=== PATIENT | female | born 1945 | race Caucasian/White ===

== ENCOUNTER 2017-02-25 11:53 | Inpatient (IN) | payer OTHER ==
[~2017-02-25] VITALS: Ht 167.6 cm; Wt 92.5 kg
[~2017-02-25 11:53] MED LIST: ACET-812 PO; ADV50100 INH; ALBU8HFA PO; AMLO10TA PO; ATOR40TA71 PO; CLOP75TA33 PO; ESCI10TA54 PO; GABA600T2 PO; INSU100C10 SQ; INSU300I SQ; NITR0.4T51 SL; RANI150C4 PO
[2017-02-25 12:38] LABS: BASOPHILS % (AUTO) 0.2 % (0-1); EOSINOPHILS # (AUTO) 0.3 X10'3 (0-0.9); EOSINOPHILS % (AUTO) 3.1 % (0-6); HEMATOCRIT 38.6 % (35.0-45.0); HEMOGLOBIN 12.9 g/dl (12.0-16.0); LYMPHOCYTES # (AUTO) 2.5 X10'3 (1.1-4.8); LYMPHOCYTES % (AUTO) 24.7 % (21-51); MEAN CORPUSCULAR HEMOGLOBIN 28.5 PG (27.0-31.0); MEAN CORPUSCULAR HGB CONC 33.4 % (33.0-36.5); MEAN CORPUSCULAR VOLUME 85.1 FL (78-98); MEAN PLATELET VOLUME 8.9 FL (7.4-10.4); MONOCYTES # (AUTO) 0.6 X10'3 (0-0.9); MONOCYTES % (AUTO) 5.5 % (2-12); NEUTROPHILS # (AUTO) 6.8 X10'3 (1.8-7.7); NEUTROPHILS % (AUTO) 66.5 % (42-75); PLATELET COUNT 240 X10'3 (140-440); RED BLOOD COUNT 4.53 X10'6 (4.20-5.60); RED CELL DISTRIBUTION WIDTH 14.8 % (11.5-14.5); WHITE BLOOD COUNT 10.2 X10'3 (4.5-11.0)
[2017-02-25 12:58] LABS: ALANINE AMINOTRANSFERASE 64 U/L (12-78); ALBUMIN 3.8 G/DL (3.4-5.0); ALBUMIN/GLOBULIN RATIO 0.9 (1.1-1.5); ALKALINE PHOSPHATASE 99 IU/L (46-116); ANION GAP 6 (8-16); ASPARTATE AMINO TRANSFERASE 47 U/L (10-37); BILIRUBIN,TOTAL 1.2 MG/DL (0.1-1.0); BLOOD UREA NITROGEN 11 MG/DL (7-18); BUN/CREATININE RATIO 14.7 (6.6-38.0); CALCIUM 8.8 MG/DL (8.5-10.1); CHLORIDE 102 MMOL/L (99-107); CREATININE 0.75 MG/DL (0.40-0.90); GLUCOSE 206 MG/DL (70-104); POTASSIUM 3.6 MMOL/L (3.5-5.1); SODIUM 137 MMOL/L (135-145); TOTAL CARBON DIOXIDE 28.8 MMOL/L (24-32); TOTAL PROTEIN 8.1 G/DL (6.4-8.2); eGFR 76 ML/MIN
[2017-02-25] MEDS ORDERED: normal saline 1000ML IV soln IVB ONE (14:40)
[2017-02-25] MEDS ORDERED: aspirin 81mg tab.chew PO ONE (14:40)
[2017-02-25] MEDS ORDERED: LOSA1TAB41 PO (15:09)
[2017-02-25] MEDS ORDERED: magnesium hydroxide 30ml (MOM) UD suspension PO PRN (18:15)
[2017-02-25] MEDS ORDERED: ondansetron/PF 4mg/2ml inj IV PRN (18:15)
[2017-02-25] MEDS ORDERED: mag hydrox/Alum hydrox/simeth 30ml oral suspension PO PRN (18:15)
[2017-02-25] MEDS ORDERED: acetaminophen 325mg tablet PO PRN ×2 (18:15→18:50)
[2017-02-25] MEDS ORDERED: nitroGLYCERIN 0.4mg SUBLingual tab SL PRN (18:50)
[2017-02-25] MEDS ORDERED: dextrose ORAL solution 15 GM/59 ML bottle PO PRN ×2 (18:55)
[2017-02-25] MEDS ORDERED: MESSAGE TO PHARMACY PO ONE (18:55)
[2017-02-25] MEDS ORDERED: heparin 10,000 units/1 ML INJ IV PRN (18:55)
[2017-02-25] MEDS ORDERED: dextrose 50%-water 50ml dispensing syringe IV PRN ×2 (18:55)
[2017-02-25] MEDS ORDERED: glucagon, human recombinant 1mg kit SUBCUT PRN (18:55)
[2017-02-25] MEDS ORDERED: heparin 10,000 units/1 ML INJ IV ONE (18:55)
[2017-02-25 19:24] LABS: HEMOGLOBIN A1C 8.7 % (4.5-6.2)
[2017-02-25] MEDS: famotidine 20mg tablet PO SCH (19:49)
[2017-02-25] MEDS: gabapentin 300mg capsule PO SCH (19:49)
[2017-02-25] MEDS: metoprolol tartrate 12.5mg (1/2 tablet) PO SCH (19:49)
[2017-02-25] MEDS: normal saline 1000ml 1,000 ML IV SCH (19:50)
[2017-02-25 19:58] LABS: BASOPHILS # (AUTO) 0.1 X10'3 (0-0.2); BASOPHILS % (AUTO) 0.8 % (0-1); EOSINOPHILS # (AUTO) 0.2 X10'3 (0-0.9); EOSINOPHILS % (AUTO) 1.9 % (0-6); HEMATOCRIT 36.5 % (35.0-45.0); HEMOGLOBIN 12.1 g/dl (12.0-16.0); LYMPHOCYTES # (AUTO) 3.6 X10'3 (1.1-4.8); LYMPHOCYTES % (AUTO) 31.9 % (21-51); MEAN CORPUSCULAR HEMOGLOBIN 28.7 PG (27.0-31.0); MEAN CORPUSCULAR HGB CONC 33.3 % (33.0-36.5); MEAN CORPUSCULAR VOLUME 86.3 FL (78-98); MEAN PLATELET VOLUME 8.8 FL (7.4-10.4); MONOCYTES # (AUTO) 0.8 X10'3 (0-0.9); MONOCYTES % (AUTO) 6.7 % (2-12); NEUTROPHILS # (AUTO) 6.6 X10'3 (1.8-7.7); NEUTROPHILS % (AUTO) 58.7 % (42-75); PLATELET COUNT 223 X10'3 (140-440); RED BLOOD COUNT 4.22 X10'6 (4.20-5.60); RED CELL DISTRIBUTION WIDTH 14.8 % (11.5-14.5); WHITE BLOOD COUNT 11.3 X10'3 (4.5-11.0)
[2017-02-25 20:00] VITALS: BP 135/72
[2017-02-25 20:08] LABS: PARTIAL THROMBOPLASTIN TIME 24 SECONDS (22-32); PROTHROMBIN TIME 10.7 SECONDS (9.0-12.0)
[2017-02-25] MEDS: Insulin Detemir pen SQ SCH (21:32)
[2017-02-25] MEDS: atorvastatin 20mg tablet PO SCH (21:32)
[2017-02-25 22:00] VITALS: BP 122/61
[2017-02-26] VITALS (11 sets, daily range): BP systolic 108–143; BP diastolic 59–77
[2017-02-26 02:02] LABS: BASOPHILS % (AUTO) 0.4 % (0-1); EOSINOPHILS # (AUTO) 0.3 X10'3 (0-0.9); EOSINOPHILS % (AUTO) 2.9 % (0-6); HEMATOCRIT 34.5 % (35.0-45.0); HEMOGLOBIN 11.5 g/dl (12.0-16.0); LYMPHOCYTES # (AUTO) 4.7 X10'3 (1.1-4.8); MEAN CORPUSCULAR HEMOGLOBIN 28.7 PG (27.0-31.0); MEAN CORPUSCULAR HGB CONC 33.3 % (33.0-36.5); MEAN CORPUSCULAR VOLUME 86.1 FL (78-98); MEAN PLATELET VOLUME 9.1 FL (7.4-10.4); MONOCYTES # (AUTO) 0.7 X10'3 (0-0.9); MONOCYTES % (AUTO) 5.8 % (2-12); NEUTROPHILS # (AUTO) 5.8 X10'3 (1.8-7.7); NEUTROPHILS % (AUTO) 49.9 % (42-75); PLATELET COUNT 206 X10'3 (140-440); RED CELL DISTRIBUTION WIDTH 14.5 % (11.5-14.5); WHITE BLOOD COUNT 11.6 X10'3 (4.5-11.0)
[2017-02-26 02:16] LABS: ALANINE AMINOTRANSFERASE 51 U/L (12-78); ALBUMIN 3.2 G/DL (3.4-5.0); ALBUMIN/GLOBULIN RATIO 0.8 (1.1-1.5); ALKALINE PHOSPHATASE 80 IU/L (46-116); ANION GAP 7 (8-16); ASPARTATE AMINO TRANSFERASE 34 U/L (10-37); BILIRUBIN,TOTAL 0.9 MG/DL (0.1-1.0); BLOOD UREA NITROGEN 16 MG/DL (7-18); BUN/CREATININE RATIO 20.8 (6.6-38.0); CALCIUM 8.4 MG/DL (8.5-10.1); CHLORIDE 104 MMOL/L (99-107); CREATININE 0.77 MG/DL (0.40-0.90); GLUCOSE 207 MG/DL (70-104); POTASSIUM 3.6 MMOL/L (3.5-5.1); SODIUM 137 MMOL/L (135-145); TOTAL CARBON DIOXIDE 26.4 MMOL/L (24-32); eGFR 74 ML/MIN
[2017-02-26] MEDS: normal saline 1000ml 1,000 ML IV SCH ×2 (06:01→20:44)
[2017-02-26] MEDS ORDERED: regadenoson 0.4mg/5ml syringe IV ONE ×2 (07:40→10:14)
[2017-02-26] MEDS ORDERED: aminophylline 250mg/10ml inj. IV PRN (07:40)
[2017-02-26] MEDS ORDERED: nitroGLYCERIN 0.4mg SUBLingual tab SL PRN (07:40)
[2017-02-26] MEDS ORDERED: metoprolol tartrate 1mg/ml inj IV PRN (07:40)
[2017-02-26] MEDS ORDERED: aminophylline inj. 0 ML IV ONE (10:14)
[2017-02-26] MEDS: losartan 50mg tablet PO SCH (11:32)
[2017-02-26] MEDS: gabapentin 300mg capsule PO SCH ×2 (11:32→21:02)
[2017-02-26] MEDS: metoprolol tartrate 12.5mg (1/2 tablet) PO SCH ×2 (11:32→21:02)
[2017-02-26] MEDS: HYDROchlorothiazide 12.5mg capsule PO SCH (11:32)
[2017-02-26] MEDS: famotidine 20mg tablet PO SCH ×2 (11:33→21:02)
[2017-02-26] MEDS: clopidogrel 75mg tablet PO SCH (11:33)
[2017-02-26] MEDS: citalopram 20mg tablet PO SCH (11:33)
[2017-02-26] MEDS: amLODIPine 5mg tablet PO SCH (11:33)
[2017-02-26] MEDS: insulin Lispro (HumaLOG) vial - multi-dose SQ SCH ×2 (13:14→18:59)
[2017-02-26] MEDS ORDERED: temazepam 15mg capsule PO PRN (17:30)
[2017-02-26] MEDS: nitroGLYCERIN 0.4mg SUBLingual tab SL PRN ×2 (17:37→17:48)
[2017-02-26] MEDS: atorvastatin 20mg tablet PO SCH (21:02)
[2017-02-26] MEDS: Insulin Detemir pen SQ SCH (21:06)
[2017-02-27] VITALS (15 sets, daily range): BP systolic 109–136; BP diastolic 58–76
[2017-02-27] MEDS: normal saline 1000ml 1,000 ML IV SCH ×3 (00:12→16:51)
[2017-02-27 06:53] LABS: BASOPHILS % (AUTO) 0.5 % (0-1); EOSINOPHILS # (AUTO) 0.4 X10'3 (0-0.9); EOSINOPHILS % (AUTO) 4.2 % (0-6); HEMATOCRIT 36.4 % (35.0-45.0); HEMOGLOBIN 12.2 g/dl (12.0-16.0); LYMPHOCYTES # (AUTO) 3.7 X10'3 (1.1-4.8); LYMPHOCYTES % (AUTO) 39.6 % (21-51); MEAN CORPUSCULAR HEMOGLOBIN 28.7 PG (27.0-31.0); MEAN CORPUSCULAR HGB CONC 33.6 % (33.0-36.5); MEAN CORPUSCULAR VOLUME 85.4 FL (78-98); MEAN PLATELET VOLUME 8.8 FL (7.4-10.4); MONOCYTES # (AUTO) 0.7 X10'3 (0-0.9); MONOCYTES % (AUTO) 7.3 % (2-12); NEUTROPHILS # (AUTO) 4.5 X10'3 (1.8-7.7); NEUTROPHILS % (AUTO) 48.4 % (42-75); PLATELET COUNT 196 X10'3 (140-440); RED BLOOD COUNT 4.26 X10'6 (4.20-5.60); RED CELL DISTRIBUTION WIDTH 14.9 % (11.5-14.5); WHITE BLOOD COUNT 9.3 X10'3 (4.5-11.0)
[2017-02-27 07:12] LABS: ALANINE AMINOTRANSFERASE 48 U/L (12-78); ALBUMIN 3.3 G/DL (3.4-5.0); ALBUMIN/GLOBULIN RATIO 0.8 (1.1-1.5); ALKALINE PHOSPHATASE 75 IU/L (46-116); ANION GAP 9 (8-16); ASPARTATE AMINO TRANSFERASE 35 U/L (10-37); BILIRUBIN,TOTAL 1.1 MG/DL (0.1-1.0); BLOOD UREA NITROGEN 11 MG/DL (7-18); BUN/CREATININE RATIO 13.4 (6.6-38.0); CALCIUM 8.6 MG/DL (8.5-10.1); CHLORIDE 107 MMOL/L (99-107); CREATININE 0.82 MG/DL (0.40-0.90); GLUCOSE 173 MG/DL (70-104); POTASSIUM 3.8 MMOL/L (3.5-5.1); SODIUM 143 MMOL/L (135-145); TOTAL CARBON DIOXIDE 27.3 MMOL/L (24-32); TOTAL PROTEIN 7.3 G/DL (6.4-8.2); eGFR 69 ML/MIN
[2017-02-27] MEDS: clopidogrel 75mg tablet PO SCH (08:00)
[2017-02-27] MEDS: insulin Lispro (HumaLOG) vial - multi-dose SQ SCH ×3 (09:34→18:47)
[2017-02-27] MEDS: amLODIPine 5mg tablet PO SCH (09:44)
[2017-02-27] MEDS: losartan 50mg tablet PO SCH (09:44)
[2017-02-27] MEDS: HYDROchlorothiazide 12.5mg capsule PO SCH (09:44)
[2017-02-27] MEDS: metoprolol tartrate 12.5mg (1/2 tablet) PO SCH (09:44)
[2017-02-27] MEDS: citalopram 20mg tablet PO SCH (09:44)
[2017-02-27] MEDS: gabapentin 300mg capsule PO SCH ×2 (09:44→19:43)
[2017-02-27] MEDS: famotidine 20mg tablet PO SCH ×2 (09:45→19:43)
[2017-02-27] MEDS ORDERED: hydrocortisone sod succ/PF 100mg/2ml inj. IV ONE (11:20)
[2017-02-27] MEDS ORDERED: diphenhydrAMINE 25mg capsule PO ONE (11:20)
[2017-02-27] MEDS ORDERED: famotidine/PF 10 mg/ml inj IV ONE (11:20)
[2017-02-27] MEDS ORDERED: nitroGLYCERIN-Tridil 50MG/D5W 250 ML IV ONE (12:20)
[2017-02-27] MEDS ORDERED: LIDOcaine 1%/PF (10mg/ml) 5ml vial ONE (12:21)
[2017-02-27] MEDS ORDERED: heparin 1,000unit/ml 10ml vial 10 ML ONE (12:21)
[2017-02-27] MEDS ORDERED: iohexol 350 MG/ML 50ML vial IV ONE (12:21)
[2017-02-27] MEDS ORDERED: iohexol 350MG/ML 100ml bottle IV ONE (12:21)
[2017-02-27] MEDS ORDERED: fentaNYL/PF 50MCG/1 ML 2ML syringe ONE (12:37)
[2017-02-27] MEDS ORDERED: midazolam 2 mg/2 ml injection ONE (12:37)
[2017-02-27] MEDS: metoprolol tartrate 25mg tablet PO SCH (19:43)
[2017-02-27] MEDS ORDERED: isosorbide mononitrate 30mg tab.SR.24H PO SCH (21:00)
[2017-02-27] MEDS: atorvastatin 20mg tablet PO SCH (21:44)
[2017-02-27] MEDS: Insulin Detemir pen SQ SCH (21:47)
[2017-02-28 03:00] VITALS: BP 102/61
[2017-02-28] MEDS: normal saline 1000ml 1,000 ML IV SCH (04:55)
[2017-02-28 05:14] LABS: BASOPHILS % (AUTO) 0.3 % (0-1); EOSINOPHILS # (AUTO) 0.3 X10'3 (0-0.9); EOSINOPHILS % (AUTO) 2.2 % (0-6); HEMATOCRIT 33.4 % (35.0-45.0); HEMOGLOBIN 11.1 g/dl (12.0-16.0); LYMPHOCYTES # (AUTO) 4.9 X10'3 (1.1-4.8); LYMPHOCYTES % (AUTO) 38.8 % (21-51); MEAN CORPUSCULAR HEMOGLOBIN 28.6 PG (27.0-31.0); MEAN CORPUSCULAR HGB CONC 33.4 % (33.0-36.5); MEAN CORPUSCULAR VOLUME 85.8 FL (78-98); MONOCYTES # (AUTO) 0.9 X10'3 (0-0.9); MONOCYTES % (AUTO) 6.9 % (2-12); NEUTROPHILS # (AUTO) 6.5 X10'3 (1.8-7.7); NEUTROPHILS % (AUTO) 51.8 % (42-75); PLATELET COUNT 210 X10'3 (140-440); RED BLOOD COUNT 3.89 X10'6 (4.20-5.60); RED CELL DISTRIBUTION WIDTH 14.7 % (11.5-14.5); WHITE BLOOD COUNT 12.6 X10'3 (4.5-11.0)
[2017-02-28 05:35] LABS: ALANINE AMINOTRANSFERASE 45 U/L (12-78); ALBUMIN 3.1 G/DL (3.4-5.0); ALBUMIN/GLOBULIN RATIO 0.8 (1.1-1.5); ALKALINE PHOSPHATASE 67 IU/L (46-116); ANION GAP 11 (8-16); ASPARTATE AMINO TRANSFERASE 31 U/L (10-37); BLOOD UREA NITROGEN 16 MG/DL (7-18); BUN/CREATININE RATIO 18.4 (6.6-38.0); CALCIUM 8.2 MG/DL (8.5-10.1); CHLORIDE 106 MMOL/L (99-107); CHOL/HDL RATIO 2.5 (0.00-4.99); CHOLESTEROL 106 MG/DL (0-200); CREATININE 0.87 MG/DL (0.40-0.90); GLUCOSE 170 MG/DL (70-104); HDL CHOLESTEROL 42 MG/DL (35-60); LDL CHOLESTEROL 55 MG/DL (50-100); POTASSIUM 3.4 MMOL/L (3.5-5.1); SODIUM 141 MMOL/L (135-145); TOTAL CARBON DIOXIDE 24.3 MMOL/L (24-32); TOTAL PROTEIN 6.8 G/DL (6.4-8.2); TRIGLYCERIDES 104 MG/DL (20-135); eGFR 64 ML/MIN
[2017-02-28 06:00] VITALS: BP 104/58
[2017-02-28] MEDS ORDERED: potassium Cl 20 mEq SR tablet PO PRN (08:00)
[2017-02-28] MEDS ORDERED: potassium Cl 40MEQ/NS 500ml 500 ML IV PRN ×2 (08:00)
[2017-02-28] MEDS: gabapentin 300mg capsule PO SCH (08:05)
[2017-02-28] MEDS: metoprolol tartrate 25mg tablet PO SCH (08:06)
[2017-02-28] MEDS: HYDROchlorothiazide 12.5mg capsule PO SCH (08:06)
[2017-02-28] MEDS: clopidogrel 75mg tablet PO SCH (08:06)
[2017-02-28] MEDS: losartan 50mg tablet PO SCH (08:06)
[2017-02-28] MEDS: famotidine 20mg tablet PO SCH (08:06)
[2017-02-28] MEDS: citalopram 20mg tablet PO SCH (08:06)
[2017-02-28] MEDS: amLODIPine 5mg tablet PO SCH (08:07)
[2017-02-28] MEDS: potassium Cl 20 mEq SR tablet PO PRN ×2 (08:49→13:11)
[2017-02-28] MEDS ORDERED: METO25TA6 PO (08:50)
[2017-02-28] MEDS ORDERED: ISOS30TA6 PO (08:50)
[2017-02-28] MEDS: insulin Lispro (HumaLOG) vial - multi-dose SQ SCH (08:54)
[2017-02-28 11:00] VITALS: BP 109/64
== END 2017-02-28 13:30 | disposition home or self-care (01) | DRG 287 ==
LOC: ER 11:54 → ED HOLD 18:12 → ORTHO 4S 20:14 → PCU 3S 02-27 13:42
PROVIDERS: ADMIT Family Medicine; ATTEND Family Medicine
PROC: 4A02XM4 Measurement of Cardiac Total Activity, External Approach (ICD-10-PCS; principal; 2017-02-26)
PROC: 3E073KZ Introduction of Other Diagnostic Substance into Coronary Artery, Percutaneous Approach (ICD-10-PCS; 2017-02-26)
PROC: 4A023N7 Measurement of Cardiac Sampling and Pressure, Left Heart, Percutaneous Approach (ICD-10-PCS; 2017-02-27)
PROC: B2111ZZ Fluoroscopy of Multiple Coronary Arteries using Low Osmolar Contrast (ICD-10-PCS; 2017-02-27)
PROC: B2151ZZ Fluoroscopy of Left Heart using Low Osmolar Contrast (ICD-10-PCS; 2017-02-27)
DX: I25.110 Atherosclerotic heart disease of native coronary artery with unstable angina pectoris (principal); E11.65 Type 2 diabetes mellitus with hyperglycemia; I34.0 Nonrheumatic mitral (valve) insufficiency; A08.4 Viral intestinal infection, unspecified; I45.10 Unspecified right bundle-branch block; J45.909 Unspecified asthma, uncomplicated; K21.9 Gastro-esophageal reflux disease without esophagitis; F32.9 Major depressive disorder, single episode, unspecified; G89.29 Other chronic pain; E66.9 Obesity, unspecified; M54.9 Dorsalgia, unspecified; E78.5 Hyperlipidemia, unspecified; M54.5 Low back pain; I10 Essential (primary) hypertension; Z90.13 Acquired absence of bilateral breasts and nipples; Z95.5 Presence of coronary angioplasty implant and graft; Z91.041 Radiographic dye allergy status; Z88.2 Allergy status to sulfonamides; Z88.8 Allergy status to other drugs, medicaments and biological substances; Z68.32 Body mass index [BMI] 32.0-32.9, adult; Z79.4 Long term (current) use of insulin; Z79.82 Long term (current) use of aspirin; Z79.899 Other long term (current) drug therapy; Z85.3 Personal history of malignant neoplasm of breast; Z87.442 Personal history of urinary calculi; Z79.02 Long term (current) use of antithrombotics/antiplatelets
CPT/HCPCS: 36415; 71045; 78452; 80053; 80061; 82948; 83036; 84484; 85025; 85610; 85730; 87070; 93005; 93017; 93306; 93458; 96360; 99152; 99153; 99285; A4353; A4620; A6257; A6258; A9500; C1769; J0280; J1644; J1720; J2001; J2250; J3010; J3490; J7030; Q0163; Q9967

== ENCOUNTER 2017-09-01 08:22 | Emergency (ER) | payer OTHER ==
[~2017-09-01] VITALS: Ht 162.6 cm; Wt 89.3 kg
[~2017-09-01 08:22] MED LIST changes: -ADV50100 INH; +ISOS30TA6 PO; +LOSA1TAB41 PO; +METO25TA6 PO
[2017-09-01 08:59] LABS: CLARITY,URINE SLIGHTLY CLOUDY (Clear); GLUCOSE, URINE >=1000 mg/dl (Neg); KETONES,URINE 15 mg/dl (Neg); LEUKOCYTE ESTERASE ,URINE NEGATIVE (Neg); NITRITES, URINE NEGATIVE (Neg); OCCULT BLOOD,URINE TRACE-INTACT (Neg); PROTEIN,URINE 30 mg/dl (Neg); UROBILINOGEN,URINE 0.2 E.U/dL (0.2-1.0)
[2017-09-01 09:02] LABS: BASOPHILS % (AUTO) 0.5 % (0-1); EOSINOPHILS % (AUTO) 0.1 % (0-6); HEMATOCRIT 41.4 % (35.0-45.0); HEMOGLOBIN 14.2 g/dl (12.0-16.0); LYMPHOCYTES # (AUTO) 0.8 X10'3 (1.1-4.8); LYMPHOCYTES % (AUTO) 10.5 % (21-51); MEAN CORPUSCULAR HEMOGLOBIN 30.4 PG (27.0-31.0); MEAN CORPUSCULAR HGB CONC 34.2 % (33.0-36.5); MEAN CORPUSCULAR VOLUME 88.9 FL (78-98); MEAN PLATELET VOLUME 8.3 FL (7.4-10.4); MONOCYTES # (AUTO) 0.7 X10'3 (0-0.9); MONOCYTES % (AUTO) 8.8 % (2-12); NEUTROPHILS # (AUTO) 6.1 X10'3 (1.8-7.7); NEUTROPHILS % (AUTO) 80.1 % (42-75); PLATELET COUNT 216 X10'3 (140-440); RED BLOOD COUNT 4.66 X10'6 (4.20-5.60); RED CELL DISTRIBUTION WIDTH 15.5 % (11.5-14.5); WHITE BLOOD COUNT 7.7 X10'3 (4.5-11.0)
[2017-09-01 09:04] LABS: UA COLLECTION TYPE CLN CATCH MIDSTREAM
[2017-09-01 09:05] LABS: COLOR,URINE DARK YELLOW (Yellow)
[2017-09-01 09:07] LABS: BACTERIA,URINE 1+ /HPF (Neg); HYALINE CASTS 0-3 /LPF (NEGATIVE); MUCUS STRANDS MANY /LPF (Neg); RBC,URINE 0-2 /HPF (0-2); SQUAMOUS EPITHELIAL CELL,UR FEW /LPF (FEW)
[2017-09-01 09:08] LABS: WBC CLUMPS,URINE FEW /HPF (NEGATIVE)
[2017-09-01 09:11] LABS: PROTHROMBIN TIME 10.6 SECONDS (9.0-12.0)
[2017-09-01 09:16] LABS: ALANINE AMINOTRANSFERASE 34 U/L (12-78); ALBUMIN 3.7 G/DL (3.4-5.0); ALBUMIN/GLOBULIN RATIO 0.8 (1.1-1.5); ALKALINE PHOSPHATASE 72 IU/L (46-116); ANION GAP 11 (8-16); ANISOCYTOSIS 1+; ASPARTATE AMINO TRANSFERASE 35 U/L (10-37); BILIRUBIN,TOTAL 1.8 MG/DL (0.1-1.0); BLOOD UREA NITROGEN 16 MG/DL (7-18); BUN/CREATININE RATIO 16.8 (6.6-38.0); CALCIUM 9.2 MG/DL (8.5-10.1); CHLORIDE 102 MMOL/L (99-107); CREATININE 0.95 MG/DL (0.40-0.90); GLUCOSE 168 MG/DL (70-104); LARGE PLATELETS FEW; PLATELET ESTIMATE NORMAL; SODIUM 141 MMOL/L (135-145); TOTAL CARBON DIOXIDE 28.1 MMOL/L (24-32); TOTAL PROTEIN 8.3 G/DL (6.4-8.2); eGFR 58 ML/MIN
[2017-09-01 09:18] LABS: POTASSIUM 2.9 MMOL/L (3.5-5.1)
[2017-09-01] MEDS ORDERED: normal saline 1000ML IV soln IVB ONE (09:25)
[2017-09-01] MEDS ORDERED: ondansetron/PF 4mg/2ml inj IV ONE (09:25)
[2017-09-01 09:40] LABS: LIPASE 67 U/L (73-393)
[2017-09-01] MEDS ORDERED: potassium 10mEq/100ml NS w/LIDOcaine (10mg/bag) IV ONE (09:40)
[2017-09-01] MEDS ORDERED: POTA20TA19 PO (13:35)
[2017-09-01] MEDS ORDERED: ONDA8TAB9 PO (13:35)
[2017-09-01 14:02] VITALS: BP 150/71
== END 2017-09-01 14:03 | disposition home or self-care (01) ==
LOC: ER 08:22
DX: R11.2 Nausea with vomiting, unspecified (principal); R19.7 Diarrhea, unspecified; I25.10 Atherosclerotic heart disease of native coronary artery without angina pectoris; I10 Essential (primary) hypertension; K21.9 Gastro-esophageal reflux disease without esophagitis; J45.909 Unspecified asthma, uncomplicated; E11.9 Type 2 diabetes mellitus without complications; Z98.890 Other specified postprocedural states; Z88.2 Allergy status to sulfonamides; Z88.8 Allergy status to other drugs, medicaments and biological substances; Z79.899 Other long term (current) drug therapy; Z79.4 Long term (current) use of insulin; Z79.2 Long term (current) use of antibiotics
CPT/HCPCS: 36415; 80053; 81001; 83690; 85025; 85610; 87088; 96361; 96374; 99284; J2405; J3480; J7030

== ENCOUNTER 2017-12-08 00:46 | Outpatient (CLI) | payer OTHER ==
[~2017-12-08 00:46] MED LIST changes: +ONDA8TAB9 PO
== END 2017-12-08 23:59 | disposition home or self-care (01) ==
LOC: DIABETIC 00:46
PROVIDERS: ATTEND Family Medicine
DX: E11.65 Type 2 diabetes mellitus with hyperglycemia (principal); I10 Essential (primary) hypertension; J45.909 Unspecified asthma, uncomplicated; Z79.82 Long term (current) use of aspirin; Z79.84 Long term (current) use of oral hypoglycemic drugs; Z79.899 Other long term (current) drug therapy
CPT/HCPCS: G0108

== ENCOUNTER 2017-12-15 17:37 | Inpatient (IN) | payer OTHER ==
[~2017-12-15] VITALS: Ht 167.6 cm; Wt 88.0 kg
[2017-12-15] MEDS ORDERED: aspirin 81mg tab.chew PO ONE (17:45)
[2017-12-15 18:03] LABS: BASOPHILS # (AUTO) 0.1 X10'3 (0-0.2); BASOPHILS % (AUTO) 0.8 % (0-1); EOSINOPHILS # (AUTO) 0.2 X10'3 (0-0.9); EOSINOPHILS % (AUTO) 2.1 % (0-6); HEMATOCRIT 39.6 % (35.0-45.0); HEMOGLOBIN 13.3 g/dl (12.0-16.0); LYMPHOCYTES % (AUTO) 26.4 % (21-51); MEAN CORPUSCULAR HEMOGLOBIN 29.7 PG (27.0-31.0); MEAN CORPUSCULAR HGB CONC 33.5 % (33.0-36.5); MEAN CORPUSCULAR VOLUME 88.7 FL (78-98); MEAN PLATELET VOLUME 8.8 FL (7.4-10.4); MONOCYTES # (AUTO) 0.8 X10'3 (0-0.9); MONOCYTES % (AUTO) 6.7 % (2-12); NEUTROPHILS # (AUTO) 7.3 X10'3 (1.8-7.7); PLATELET COUNT 226 X10'3 (140-440); RED BLOOD COUNT 4.46 X10'6 (4.20-5.60); RED CELL DISTRIBUTION WIDTH 14.7 % (11.5-14.5); WHITE BLOOD COUNT 11.4 X10'3 (4.5-11.0)
[2017-12-15 18:21] LABS: ALANINE AMINOTRANSFERASE 30 U/L (12-78); ALBUMIN 3.5 G/DL (3.4-5.0); ALBUMIN/GLOBULIN RATIO 0.8 (1.1-1.5); ALKALINE PHOSPHATASE 85 IU/L (46-116); ANION GAP 6 (8-16); ASPARTATE AMINO TRANSFERASE 39 U/L (10-37); BILIRUBIN,TOTAL 1.3 MG/DL (0.1-1.0); BLOOD UREA NITROGEN 12 MG/DL (7-18); BUN/CREATININE RATIO 15.4 (6.6-38.0); CHLORIDE 106 MMOL/L (99-107); CREATININE 0.78 MG/DL (0.40-0.90); GLUCOSE 191 MG/DL (70-104); POTASSIUM 4.1 MMOL/L (3.5-5.1); SODIUM 144 MMOL/L (135-145); TOTAL CARBON DIOXIDE 32.2 MMOL/L (24-32); eGFR 73 ML/MIN
[2017-12-15] MEDS ORDERED: CLOP75TA15 PO (21:30)
[2017-12-15] MEDS ORDERED: SIMV20TA5 PO (21:33)
[2017-12-15] MEDS ORDERED: FLUO20CA39 PO (21:33)
[2017-12-15] MEDS ORDERED: RANI150C4 PO (21:34)
[2017-12-15] MEDS ORDERED: VALS1TAB50 PO (21:35)
[2017-12-15] MEDS ORDERED: PANT-47 PO (21:36)
[2017-12-15] MEDS ORDERED: BUPR150T8 PO (21:36)
[2017-12-15] MEDS ORDERED: ISOS30TA6 PO (21:38)
[2017-12-15] MEDS ORDERED: PIOG15TA8 PO (21:39)
[2017-12-15] MEDS ORDERED: PIOG30TA10 PO (21:39)
[2017-12-15] MEDS ORDERED: EMPA10TA PO (21:40)
[2017-12-15] MEDS ORDERED: LOPE-144 (21:45)
[2017-12-15] MEDS ORDERED: METF500T PO (21:47)
[2017-12-15] MEDS ORDERED: ondansetron/PF 4mg/2ml inj IV PRN (23:30)
[2017-12-15] MEDS ORDERED: nitroGLYCERIN 0.4mg SUBLingual tab SL PRN (23:35)
[2017-12-15] MEDS ORDERED: glucagon, human recombinant 1mg kit SUBCUT PRN (23:35)
[2017-12-15] MEDS ORDERED: dextrose 50%-water 50ml dispensing syringe IV PRN ×2 (23:35)
[2017-12-15] MEDS ORDERED: dextrose ORAL solution 15 GM/59 ML bottle PO PRN ×2 (23:35)
[2017-12-15] MEDS ORDERED: MESSAGE TO PHARMACY PO ONE (23:35)
[2017-12-15 23:55] VITALS: BP 149/78
[2017-12-16] VITALS (9 sets, daily range): BP systolic 126–152; BP diastolic 63–78
[2017-12-16 00:07] LABS: HEMOGLOBIN A1C 6.2 % (4.5-6.2)
[2017-12-16] MEDS: normal saline 1000ml 1,000 ML IV SCH ×3 (00:46→19:30)
[2017-12-16] MEDS ORDERED: morphine 2 MG/ML inj. syringe IV PRN (04:45)
[2017-12-16] MEDS: morphine 2 MG/ML inj. syringe IV PRN ×2 (05:05→11:41)
[2017-12-16 07:05] LABS: BASOPHILS % (AUTO) 0.4 % (0-1); EOSINOPHILS # (AUTO) 0.2 X10'3 (0-0.9); EOSINOPHILS % (AUTO) 2.6 % (0-6); HEMATOCRIT 35.3 % (35.0-45.0); HEMOGLOBIN 11.9 g/dl (12.0-16.0); LYMPHOCYTES # (AUTO) 2.5 X10'3 (1.1-4.8); LYMPHOCYTES % (AUTO) 28.5 % (21-51); MEAN CORPUSCULAR HEMOGLOBIN 29.9 PG (27.0-31.0); MEAN CORPUSCULAR HGB CONC 33.6 % (33.0-36.5); MEAN CORPUSCULAR VOLUME 89.1 FL (78-98); MEAN PLATELET VOLUME 8.8 FL (7.4-10.4); MONOCYTES # (AUTO) 0.6 X10'3 (0-0.9); MONOCYTES % (AUTO) 7.2 % (2-12); NEUTROPHILS # (AUTO) 5.4 X10'3 (1.8-7.7); NEUTROPHILS % (AUTO) 61.3 % (42-75); PLATELET COUNT 158 X10'3 (140-440); RED BLOOD COUNT 3.96 X10'6 (4.20-5.60); RED CELL DISTRIBUTION WIDTH 14.6 % (11.5-14.5); WHITE BLOOD COUNT 8.9 X10'3 (4.5-11.0)
[2017-12-16 07:14] LABS: ALANINE AMINOTRANSFERASE 25 U/L (12-78); ALBUMIN/GLOBULIN RATIO 0.8 (1.1-1.5); ALKALINE PHOSPHATASE 63 IU/L (46-116); ANION GAP 8 (8-16); ASPARTATE AMINO TRANSFERASE 32 U/L (10-37); BILIRUBIN,TOTAL 1.2 MG/DL (0.1-1.0); BLOOD UREA NITROGEN 9 MG/DL (7-18); CALCIUM 8.8 MG/DL (8.5-10.1); CHLORIDE 106 MMOL/L (99-107); GLUCOSE 105 MG/DL (70-104); POTASSIUM 3.3 MMOL/L (3.5-5.1); SODIUM 140 MMOL/L (135-145); eGFR > 90 ML/MIN
[2017-12-16] MEDS: metoprolol tartrate 25mg tablet PO SCH ×2 (08:00→20:35)
[2017-12-16] MEDS: isosorbide mononitrate 30mg tab.SR.24H PO SCH (08:00)
[2017-12-16] MEDS ORDERED: non-formulary drug (Ranitidine HCl 2 CAP) PO SCH (08:00)
[2017-12-16] MEDS ORDERED: PIOGLITAZONE HCL PO SCH (08:00)
[2017-12-16] MEDS ORDERED: pioglitazone 15mg tablet PO SCH (08:00)
[2017-12-16] MEDS: losartan 50mg tablet PO SCH (08:00)
[2017-12-16] MEDS: HYDROchlorothiazide 25mg tablet PO SCH (08:00)
[2017-12-16] MEDS: famotidine 20mg tablet PO SCH ×2 (08:27→20:35)
[2017-12-16] MEDS: FLUoxetine 20mg capsule PO SCH (08:28)
[2017-12-16] MEDS: buPROPion SR 150mg tablet PO SCH (08:28)
[2017-12-16] MEDS: gabapentin 300mg capsule PO SCH ×2 (08:29→20:34)
[2017-12-16] MEDS: pantoprazole 40mg Tablet.DR PO SCH (08:30)
[2017-12-16] MEDS ORDERED: LIDOcaine Viscous 15ml cup ONE (13:11)
[2017-12-16] MEDS ORDERED: MIDAZolam 5mg/5ml vial ONE (13:11)
[2017-12-16] MEDS ORDERED: fentaNYL/PF 50MCG/1 ML 2ML syringe ONE (13:11)
[2017-12-16] MEDS ORDERED: glucagon, human recombinant 1mg kit SUBCUT PRN (16:45)
[2017-12-16] MEDS ORDERED: dextrose 50%-water 50ml dispensing syringe IV PRN ×2 (16:45)
[2017-12-16] MEDS ORDERED: MESSAGE TO PHARMACY PO ONE (16:45)
[2017-12-16] MEDS ORDERED: insulin Lispro (HumaLOG) vial - multi-dose SQ SCH (16:45)
[2017-12-16] MEDS ORDERED: dextrose ORAL solution 15 GM/59 ML bottle PO PRN ×2 (16:45)
[2017-12-16] MEDS ORDERED: potassium Cl 20 mEq SR tablet PO PRN (19:40)
[2017-12-16] MEDS ORDERED: potassium Cl 40MEQ/NS 500ml 500 ML IV PRN ×2 (19:40)
[2017-12-16] MEDS: potassium Cl 20 mEq SR tablet PO PRN (20:35)
[2017-12-16] MEDS ORDERED: insulin glargine (Lantus) pen - multi-dose SQ SCH (21:00)
[2017-12-16] MEDS ORDERED: atorvastatin 10mg tablet PO SCH (21:00)
[2017-12-16] MEDS ORDERED: metFORMIN 500mg tablet PO SCH (21:00)
[2017-12-17 02:00] VITALS: BP 130/67
[2017-12-17] MEDS: potassium Cl 20 mEq SR tablet PO PRN (02:50)
[2017-12-17] MEDS: normal saline 1000ml 1,000 ML IV SCH (05:30)
[2017-12-17 05:57] LABS: BASOPHILS % (AUTO) 0.3 % (0-1); EOSINOPHILS # (AUTO) 0.2 X10'3 (0-0.9); EOSINOPHILS % (AUTO) 3.2 % (0-6); HEMATOCRIT 36.1 % (35.0-45.0); HEMOGLOBIN 12.2 g/dl (12.0-16.0); LYMPHOCYTES # (AUTO) 2.6 X10'3 (1.1-4.8); LYMPHOCYTES % (AUTO) 34.2 % (21-51); MEAN CORPUSCULAR HEMOGLOBIN 30.1 PG (27.0-31.0); MEAN CORPUSCULAR HGB CONC 33.8 % (33.0-36.5); MEAN CORPUSCULAR VOLUME 88.9 FL (78-98); MEAN PLATELET VOLUME 8.7 FL (7.4-10.4); MONOCYTES # (AUTO) 0.6 X10'3 (0-0.9); MONOCYTES % (AUTO) 7.5 % (2-12); NEUTROPHILS # (AUTO) 4.2 X10'3 (1.8-7.7); NEUTROPHILS % (AUTO) 54.8 % (42-75); PLATELET COUNT 158 X10'3 (140-440); RED BLOOD COUNT 4.06 X10'6 (4.20-5.60); RED CELL DISTRIBUTION WIDTH 14.5 % (11.5-14.5); WHITE BLOOD COUNT 7.6 X10'3 (4.5-11.0)
[2017-12-17 06:00] VITALS: BP 104/80
[2017-12-17 06:16] LABS: ANION GAP 8 (8-16); CHLORIDE 105 MMOL/L (99-107); GLUCOSE 91 MG/DL (70-104); POTASSIUM 3.8 MMOL/L (3.5-5.1); SODIUM 141 MMOL/L (135-145)
[2017-12-17 06:17] LABS: ALANINE AMINOTRANSFERASE 23 U/L (12-78); ALBUMIN 2.9 G/DL (3.4-5.0); ALBUMIN/GLOBULIN RATIO 0.7 (1.1-1.5); ALKALINE PHOSPHATASE 58 IU/L (46-116); ASPARTATE AMINO TRANSFERASE 28 U/L (10-37); BILIRUBIN,TOTAL 1.2 MG/DL (0.1-1.0); BLOOD UREA NITROGEN 8 MG/DL (7-18); CALCIUM 9.1 MG/DL (8.5-10.1); MAGNESIUM 1.9 MG/DL (1.5-2.4); eGFR > 90 ML/MIN
[2017-12-17 07:50] VITALS: BP 139/81
[2017-12-17] MEDS: losartan 50mg tablet PO SCH (07:51)
[2017-12-17] MEDS: HYDROchlorothiazide 25mg tablet PO SCH (07:52)
[2017-12-17] MEDS: metoprolol tartrate 25mg tablet PO SCH (07:53)
[2017-12-17] MEDS: isosorbide mononitrate 30mg tab.SR.24H PO SCH (07:53)
[2017-12-17] MEDS: gabapentin 300mg capsule PO SCH (07:54)
[2017-12-17] MEDS: famotidine 20mg tablet PO SCH (07:55)
[2017-12-17] MEDS: pantoprazole 40mg Tablet.DR PO SCH (07:56)
[2017-12-17] MEDS: FLUoxetine 20mg capsule PO SCH (07:56)
[2017-12-17] MEDS: buPROPion SR 150mg tablet PO SCH (07:57)
[2017-12-17] MEDS ORDERED: BARIUM SULFATE 340 ML SUSP.RECON***PROCEDURE AREA ONLY**DONT ENTER PO ONE (09:31)
[2017-12-17 10:00] VITALS: BP 83/60
[2017-12-17 11:05] VITALS: BP 125/73
[2017-12-17] MEDS ORDERED: DICY10CA14 PO (11:24)
== END 2017-12-17 12:15 | disposition home or self-care (01) | DRG 392 ==
LOC: ER 17:37 → ED HOLD 23:30 → ORTHO 4S 23:55 → CMPBEDREQ 23:55
PROVIDERS: ADMIT Internal Medicine; ATTEND Internal Medicine
PROC: 0D758ZZ Dilation of Esophagus, Via Natural or Artificial Opening Endoscopic (ICD-10-PCS; principal; 2017-12-16)
PROC: 0DB68ZX Excision of Stomach, Via Natural or Artificial Opening Endoscopic, Diagnostic (ICD-10-PCS; 2017-12-16)
PROC: BD11YZZ Fluoroscopy of Esophagus using Other Contrast (ICD-10-PCS; 2017-12-17)
DX: K22.4 Dyskinesia of esophagus (principal); K21.9 Gastro-esophageal reflux disease without esophagitis; E11.9 Type 2 diabetes mellitus without complications; I10 Essential (primary) hypertension; I25.10 Atherosclerotic heart disease of native coronary artery without angina pectoris; G89.29 Other chronic pain; F32.9 Major depressive disorder, single episode, unspecified; M54.9 Dorsalgia, unspecified; J45.909 Unspecified asthma, uncomplicated; Z90.13 Acquired absence of bilateral breasts and nipples; I25.2 Old myocardial infarction; Z95.5 Presence of coronary angioplasty implant and graft; Z88.2 Allergy status to sulfonamides; Z88.8 Allergy status to other drugs, medicaments and biological substances; Z79.84 Long term (current) use of oral hypoglycemic drugs; Z79.899 Other long term (current) drug therapy; Z87.442 Personal history of urinary calculi; Z85.3 Personal history of malignant neoplasm of breast
CPT/HCPCS: 36415; 43239; 71045; 74220; 80053; 82948; 83036; 83735; 83880; 84484; 85025; 87070; 93005; 99152; 99285; A4620; G0378; J1815; J2250; J2270; J3010; J7030

== ENCOUNTER 2018-08-22 09:03 | Outpatient (CLI) | payer OTHER ==
[~2018-08-22 09:03] MED LIST changes: -ACET-812 PO; -ALBU8HFA PO; -AMLO10TA PO; -ATOR40TA71 PO; +BUPR150T8 PO; +CLOP75TA15 PO; -CLOP75TA33 PO; +DICY10CA14 PO; +EMPA10TA PO; -ESCI10TA54 PO; +FLUO20CA39 PO; +GABA600T13 PO; -GABA600T2 PO; -INSU100C10 SQ; -INSU300I SQ; -LOSA1TAB41 PO; +METF500T PO; -ONDA8TAB9 PO; +PANT-47 PO; -RANI150C4 PO; +SIMV20TA5 PO; +VALS1TAB50 PO
== END 2018-08-22 23:59 | disposition home or self-care (01) ==
LOC: RAD 09:03
PROVIDERS: ATTEND Internal Medicine Gastroenterology
DX: R10.11 Right upper quadrant pain (principal); R19.7 Diarrhea, unspecified; K59.00 Constipation, unspecified; E27.8 Other specified disorders of adrenal gland; I10 Essential (primary) hypertension; E11.9 Type 2 diabetes mellitus without complications; Z90.49 Acquired absence of other specified parts of digestive tract
CPT/HCPCS: 74181; 76700

== ENCOUNTER 2022-01-23 12:31 | Emergency (ER) | payer OTHER ==
[~2022-01-23] VITALS: Ht 165.1 cm; Wt 96.0 kg
[~2022-01-23 12:31] MED LIST changes: -ISOS30TA6 PO; +ISOS30TA84 PO; +LOP25T PO; -METO25TA6 PO; +SIMV-42 PO; -SIMV20TA5 PO; -VALS1TAB50 PO; +VALS1TAB8 PO
[2022-01-23 13:41] LABS: BASOPHILS % (AUTO) 0.4 % (0-1); EOSINOPHILS # (AUTO) 0.2 X10'3 (0-0.9); EOSINOPHILS % (AUTO) 2.5 % (0-6); HEMATOCRIT 36.9 % (35.0-45.0); HEMOGLOBIN 12.2 g/dl (12.0-16.0); LYMPHOCYTES # (AUTO) 2.6 X10'3 (1.1-4.8); LYMPHOCYTES % (AUTO) 27.9 % (21-51); MEAN CORPUSCULAR HEMOGLOBIN 29.5 PG (27.0-31.0); MEAN CORPUSCULAR VOLUME 89.3 FL (78-98); MEAN PLATELET VOLUME 8.7 FL (7.4-10.4); MONOCYTES # (AUTO) 0.9 X10'3 (0-0.9); MONOCYTES % (AUTO) 9.2 % (2-12); NEUTROPHILS # (AUTO) 5.6 X10'3 (1.8-7.7); PLATELET COUNT 251 X10'3 (140-440); RED BLOOD COUNT 4.13 X10'6 (4.20-5.60); WHITE BLOOD COUNT 9.4 X10'3 (4.5-11.0)
[2022-01-23 13:55] LABS: ALANINE AMINOTRANSFERASE 24 U/L (12-78); ALBUMIN 3.3 G/DL (3.4-5.0); ALBUMIN/GLOBULIN RATIO 0.7 (1.1-1.5); ALKALINE PHOSPHATASE 86 IU/L (46-116); ANION GAP 7 (8-16); ASPARTATE AMINO TRANSFERASE 49 U/L (10-37); BILIRUBIN,TOTAL 1.4 MG/DL (0.1-1.0); BLOOD UREA NITROGEN 12 MG/DL (7-18); CALCIUM 9.2 MG/DL (8.5-10.1); CHLORIDE 102 MMOL/L (99-107); GLUCOSE 135 MG/DL (70-104); LIPASE 70 U/L (73-393); POTASSIUM 3.7 MMOL/L (3.5-5.1); SODIUM 140 MMOL/L (135-145); TOTAL CARBON DIOXIDE 31.4 MMOL/L (24-32); TOTAL PROTEIN 7.8 G/DL (6.4-8.2); eGFR 54 ML/MIN
[2022-01-23] MEDS ORDERED: normal saline 1000ML IV soln IVB ONE (15:30)
[2022-01-23] MEDS ORDERED: morphine 4 MG/ML inj SYRINge IV ONE ×2 (17:05→20:15)
[2022-01-23 17:46] LABS: CLARITY,URINE CLEAR (Clear); COLOR,URINE YELLOW (Yellow); GLUCOSE, URINE NEGATIVE (Neg); KETONES,URINE NEGATIVE (Neg); LEUKOCYTE ESTERASE ,URINE SMALL (Neg); NITRITES, URINE NEGATIVE (Neg); OCCULT BLOOD,URINE NEGATIVE (Neg); PROTEIN,URINE NEGATIVE (Neg); UROBILINOGEN,URINE 0.2 E.U/dL (0.2-1.0)
[2022-01-23 17:56] LABS: UA COLLECTION TYPE CLN CATCH MIDSTREAM
[2022-01-23 18:10] LABS: BACTERIA,URINE FEW /HPF (Neg); MUCUS STRANDS FEW /LPF (Neg); RBC,URINE 0-2 /HPF (0-2); RENAL CELLS, URINE FEW /HPF; SQUAMOUS EPITHELIAL CELL,UR MANY /LPF (FEW); WBC,URINE 20-30 /HPF (0-4)
[2022-01-23 18:33] VITALS: BP 205/144
== END 2022-01-23 20:52 | disposition home or self-care (01) ==
LOC: ER 12:31
DX: R10.12 Left upper quadrant pain (principal); I25.10 Atherosclerotic heart disease of native coronary artery without angina pectoris; I10 Essential (primary) hypertension; J45.909 Unspecified asthma, uncomplicated; K21.9 Gastro-esophageal reflux disease without esophagitis; E11.9 Type 2 diabetes mellitus without complications; G89.29 Other chronic pain; F32.A Depression, unspecified; Z87.442 Personal history of urinary calculi; Z85.3 Personal history of malignant neoplasm of breast; Z98.890 Other specified postprocedural states; Z88.2 Allergy status to sulfonamides; Z88.6 Allergy status to analgesic agent; Z88.8 Allergy status to other drugs, medicaments and biological substances; Z79.899 Other long term (current) drug therapy
CPT/HCPCS: 36415; 74176; 76770; 80053; 81001; 83690; 85025; 96361; 96374; 96376; 99284; J2270; J7030

== ENCOUNTER 2022-02-18 11:19 | Day surgery (SDC) | payer OTHER ==
[2022-02-18] VITALS (16 sets, daily range): BP systolic 133–172; BP diastolic 57–108
[~2022-02-18] VITALS: Ht 165.1 cm; Wt 95.7 kg
[2022-02-18] MEDS ORDERED: normal saline 1000ml 1,000 ML IV PRN (11:40)
[2022-02-18] MEDS ORDERED: DENO60DI SUBCUT (11:46)
[2022-02-18] MEDS ORDERED: FURO20TA4 PO (11:46)
[2022-02-18] MEDS ORDERED: LOSA100T57 PO (11:46)
[2022-02-18] MEDS ORDERED: ATOR40TA72 PO (11:46)
[2022-02-18] MEDS ORDERED: INSU300I SQ (11:57)
[2022-02-18] MEDS ORDERED: MONT-40 PO (11:57)
[2022-02-18] MEDS ORDERED: AMLO5TAB16 PO (11:57)
[2022-02-18] MEDS ORDERED: PANT40TA54 PO (11:57)
[2022-02-18] MEDS ORDERED: ESCI20TA39 PO (11:57)
[2022-02-18] MEDS ORDERED: PIOG45TA5 PO (12:01)
[2022-02-18] MEDS ORDERED: SEMA0.25 SQ (12:01)
[2022-02-18 12:17] LABS: BASOPHILS % (AUTO) 0.5 % (0-1); EOSINOPHILS # (AUTO) 0.2 X10'3 (0-0.9); EOSINOPHILS % (AUTO) 2.4 % (0-6); HEMOGLOBIN 10.9 g/dl (12.0-16.0); LYMPHOCYTES # (AUTO) 1.8 X10'3 (1.1-4.8); LYMPHOCYTES % (AUTO) 21.2 % (21-51); MEAN CORPUSCULAR HGB CONC 33.1 g/dL (33.0-36.5); MEAN CORPUSCULAR VOLUME 87.8 FL (78-98); MEAN PLATELET VOLUME 8.5 FL (7.4-10.4); MONOCYTES # (AUTO) 0.8 X10'3 (0-0.9); MONOCYTES % (AUTO) 9.2 % (2-12); NEUTROPHILS # (AUTO) 5.8 X10'3 (1.8-7.7); NEUTROPHILS % (AUTO) 66.7 % (42-75); PLATELET COUNT 228 X10'3 (140-440); RED BLOOD COUNT 3.76 X10'6 (4.20-5.60); RED CELL DISTRIBUTION WIDTH 13.9 % (11.5-14.5); WHITE BLOOD COUNT 8.7 X10'3 (4.5-11.0)
[2022-02-18] MEDS ORDERED: fentaNYL/PF 50MCG/1 ML 2ML syringe ONE (12:48)
[2022-02-18] MEDS ORDERED: midazolam 1 mg/ML 2ml injection ONE (12:48)
[2022-02-18] MEDS ORDERED: gelatin sponge, absorbable (Gelfoam 12-7MM) sponge TP ONE (13:01)
[2022-02-18] MEDS ORDERED: HYDROcodone/acetaminophen 5mg/325mg tablet PO PRN ×2 (13:35)
== END 2022-02-18 15:55 | disposition home or self-care (01) ==
LOC: SSTAY O 11:19
PROVIDERS: ATTEND Radiology Vascular & Interventional Radiology
DX: R16.0 Hepatomegaly, not elsewhere classified (principal); Z88.2 Allergy status to sulfonamides; Z88.8 Allergy status to other drugs, medicaments and biological substances; Z91.041 Radiographic dye allergy status; Z91.09 Other allergy status, other than to drugs and biological substances; Z79.899 Other long term (current) drug therapy
CPT/HCPCS: 36415; 47000; 76942; 82948; 85025; 85610; J2250; J3010; J7030; 88307; 99152; 99153; A4615